=== PATIENT | female | born 1955 | race Two or more races ===

== ENCOUNTER 2017-10-31 06:26 | Day surgery (SDC) | payer OTHER | END 2017-10-31 11:05 | disposition home or self-care (01) | LOC: AMB-ENDOS 06:26 | DX: D12.5 Benign neoplasm of sigmoid colon (principal) ==

== ENCOUNTER 2020-12-01 08:10 | Day surgery (SDC) | payer OTHER | END 2020-12-01 12:00 | disposition home or self-care (01) | LOC: AMB-ENDOS 08:10 | PROVIDERS: ATTEND Surgery | DX: D12.3 Benign neoplasm of transverse colon (principal); Z20.822 Contact with and (suspected) exposure to COVID-19 ==